=== PATIENT | male | born 1965 | race Caucasian/White ===

== ENCOUNTER 2019-01-08 11:22 | Outpatient (CLI) | payer BC ==
--- NOTE | 2019-01-08 11:50 | RAD ---
FXR Shoulder Rt 2 View: 01/08/2019 12:00 AM CLINICAL INDICATION: Pain COMPARISON: None. FINDINGS: Fracture:No fracture. Arthropathy:None of significance. Incidental findings:None of significance. IMPRESSION: 1. No acute fracture.
== END 2019-01-08 11:23 | disposition home or self-care (01) ==
LOC: BICRAD 11:22
PROVIDERS: ATTEND Anesthesiology
DX: M25.511 Pain in right shoulder (principal)

== ENCOUNTER 2019-05-27 12:56 | Outpatient (CLI) | payer BC ==
[2019-05-27 14:12] LABS: #Eosinphils 0.1 thou/uL (0.0-0.7); #Lymphocytes 1.4 thou/uL (1.20-3.40); #Monocytes 0.4 thou/uL (0.11-0.59); #Neutrophils 3.2 thou/uL (1.40-6.50); %Basophils 0.7 % (0.0-1.0); %Eosinophils 1.7 % (0.0-10.0); %Lymphocytes 26.8 % (21.0-51.0); %Monocytes 7.7 % (0.0-10.0); %Neutrophils 63.1 % (42.0-75.0); Hemoglobin 15.2 g/dL (14.0-18.0); Mean Corpuscular HGB CONC 33.6 g/dL (32.0-36.0); Mean Corpuscular Hemoglobin 30.2 pg (27.0-31.0); Mean Platelet Volume 8.5 fL (7.4-10.4); Platelet Count 165 thou/uL (130-400); RBC Distribution Width 12.1 % (11.5-14.5); Red Blood Cell (RBC) Count 5.03 mill/uL (4.70-6.10); White Blood Cell (WBC) Count 5.1 thou/uL (4.8-10.8)
[2019-05-27 14:34] LABS: Anion Gap 13 mmol/L (10-20); BUN (Urea Nitrogen) 8 mg/dL (8.4-25.7); Calc. Creatinine Clearance 0 mL/min (70-130); Calcium 9.4 mg/dL (7.8-10.44); Carbon Dioxide 24 mmol/L (22-29); Chloride 108 mmol/L (98-107); Estimated GFR-MDRD 64; Glucose 162 mg/dL (70-105); Sodium 141 mmol/L (136-145)
== END 2019-05-27 12:57 | disposition home or self-care (01) ==
LOC: LABBT 12:56
PROVIDERS: ATTEND Orthopaedic Surgery
DX: Z01.818 Encounter for other preprocedural examination (principal); S46.211A Strain of muscle, fascia and tendon of other parts of biceps, right arm, initial encounter
CPT/HCPCS: 80048; 85025; 93005; 93010

== ENCOUNTER 2019-05-29 06:48 | Day surgery (SDC) | payer BC ==
[2019-05-27 13:20] VITALS: BMI 30.4
[2019-05-29] MEDS ORDERED: ceFAZolin Sodium (SDC) 2 GM/100 ML BAG ONE (07:38)
[2019-05-29] MEDS ORDERED: Midazolam HCl 2 mg/2 ml Vial ONE (08:08)
[2019-05-29] MEDS ORDERED: Lidocaine 1% (PF) 30 ML VIAL ONE (08:08)
[2019-05-29] MEDS ORDERED: Fentanyl 100 MCG/2 ML VIAL ONE (08:08)
[2019-05-29] MEDS ORDERED: Zolpidem Tartrate 5 MG TAB PO PRN (08:38)
[2019-05-29] MEDS ORDERED: traMADol HCl 50 MG TAB PO PRN ×2 (08:38)
[2019-05-29] MEDS ORDERED: Ropivacaine 0.2% 550 ML 550 ML NERVE BLCK SCH (08:38)
[2019-05-29] MEDS ORDERED: HYDROcodone/Acetaminophen 10/325 mg Tablet PO PRN ×2 (08:38)
[2019-05-29] MEDS ORDERED: Promethazine HCl 25 MG/ML VIAL IM PRN (08:38)
[2019-05-29] MEDS ORDERED: Ondansetron PF 4 MG/2 ML Vial IVP PRN (08:38)
[2019-05-29] MEDS ORDERED: Fentanyl 100 MCG/2 ML VIAL IV PRN (08:39)
[2019-05-29] MEDS ORDERED: Bupivacaine/Epinephrine 0.25% 30 ML VIAL ONE (09:11)
--- NOTE | 2019-05-29 10:36 | OP ---
DATE OF PROCEDURE: 05/29/2019 PREOPERATIVE DIAGNOSIS: Right shoulder impingement with intra-articular biceps tendon tear. POSTOPERATIVE DIAGNOSIS: Right shoulder impingement with intra-articular biceps tendon tear. PROCEDURES PERFORMED: 1. Right shoulder arthroscopy with arthroscopic subacromial decompression. 2. Open biceps tenodesis. BI LEAD: Chas Siegel PA-C ESTIMATED BLOOD LOSS: Minimal. COMPLICATIONS: None. ANESTHESIA: The patient did have a general anesthetic as well as a preoperative block. IMPLANTS: To the right arm is an Arthrex 8 x 23 BioComposite Bio-Tenodesis screw. DISPOSITION: He went to recovery room in stable condition. INDICATIONS: This is a 53-year-old active male, who has been having right shoulder and arm pain for months and an MRI confirmed an intra-articular biceps tendon tear. At this time, he wished to have surgery. DESCRIPTION OF PROCEDURE: After all appropriate consent forms were explained and signed, he was taken back to the operative room and at this time was given a general anesthetic. Once the level of anesthesia was appropriate, the patient was rolled into the left lateral decubitus position with all bony prominences well padded. Axillary roll was placed underneath the left axilla and a hendrix bag was inflated to hold into its position. The arm was then taken through full range of motion and then suspended with 15 pounds in standard arthroscopic fashion. Bony anatomical landmarks were then drawn out after the shoulder and upper extremity were prepped and draped in standard surgical fashion. The subacromial space was infiltrated with Marcaine with epinephrine. Posterior portal was established. Scope was placed into the shoulder joint. Anterior working portal was made using a needle localization technique. Diagnostic arthroscopy commenced. The glenohumeral articular cartilage on the humeral head and glenoid were in good condition. No loose bodies were noted in the axillary pouch. The inferior, posterior, and anterior labrum were in good condition. Superior labrum was degenerative and torn. There was an intra-articular tear of the biceps tendon in 2 separate areas with large pieces of tissue hanging down. The subscapularis tendon was overall intact. The very leading edge of this was found to be frayed and the rotator cuff insertion was found to be in good condition. At this time, a green cannula was placed anteriorly and through an 18-gauge needle, a stitch was placed through the biceps tendon. The scissors were then used to cut the biceps off the superior labrum. We then removed our scope and replaced it into the subacromial space. Lateral working portal was made. Bursa was removed from off the underlying rotator cuff. This was found to be intact. The soft tissue was removed using the shaver and the surface energy and a small bony decompression was performed of the anterior-inferior acromion. Once this was done, scope was removed. Shoulder was drained. We then made an incision from our poke hole, where the needle was used to place the stitch through the biceps down distally through skin with a 15 blade. The Bovie was used to coagulate any brisk venous bleeding. Deltoid fascia was incised sharply. Finger dissection was used to dissect the deltoid in-line with its fibers. We then got down to the transverse humeral ligament, opened this up in its entirety to free up the biceps tendon. The large fat intra-articular portion of the biceps tendon was noted and at this time, we sutured the tendon distal to this, removing this portion of the tendon. We then measured this to be an 8. We then placed our pin. We drilled to a depth of 25 with an 8-mm reamer and placed an 8 x 23 BioComposite Bio-Tenodesis screw in standard fashion. Sutures were tied over top so that the screw could not back out. At this time, we thoroughly irrigated and dried. We allowed our deltoid to close upon itself. We ran a Vicryl to close the deltoid fascia. 2-0 Vicryl sutures were used to close this incision as well as our portals. Bulky sterile dressing was applied. The patient was awakened, taken to the recovery room in stable condition. All counts were correct at the end of the case and he did receive preoperative IV antibiotics. Job ID: [id number]
[2019-05-29] MEDS ORDERED: Ketorolac Tromethamine 30 MG/ML VIAL IVP SCH (12:00)
== END 2019-05-29 13:40 | disposition home or self-care (01) ==
LOC: SDC 06:48
PROVIDERS: ATTEND Orthopaedic Surgery
PROC: 0LS10ZZ Reposition Right Shoulder Tendon, Open Approach (ICD-10-PCS; principal; 2019-05-29)
PROC: 0RHJ04Z Insertion of Internal Fixation Device into Right Shoulder Joint, Open Approach (ICD-10-PCS; principal; 2019-05-29)
PROC: 0RNJ4ZZ Release Right Shoulder Joint, Percutaneous Endoscopic Approach (ICD-10-PCS; principal; 2019-05-29)
PROC: 3E0T3BZ Introduction of Anesthetic Agent into Peripheral Nerves and Plexi, Percutaneous Approach (ICD-10-PCS; principal; 2019-05-29)
DX: S46.111A Strain of muscle, fascia and tendon of long head of biceps, right arm, initial encounter (principal); M25.811 Other specified joint disorders, right shoulder; M24.111 Other articular cartilage disorders, right shoulder; G89.18 Other acute postprocedural pain; I10 Essential (primary) hypertension; E78.5 Hyperlipidemia, unspecified; K21.9 Gastro-esophageal reflux disease without esophagitis; M47.816 Spondylosis without myelopathy or radiculopathy, lumbar region; Z88.0 Allergy status to penicillin; Z79.82 Long term (current) use of aspirin; Z79.899 Other long term (current) drug therapy
CPT/HCPCS: A4306; C1713; J0690; J2001; J2250; J2795; J3010

== ENCOUNTER 2019-12-06 06:04 | Day surgery (SDC) | payer BC ==
[2019-12-05 15:40] VITALS: BMI 31.6
[2019-12-06] MEDS ORDERED: Thrombin 5000 UNITS/5 ML VIAL ONE (06:23)
[2019-12-06] MEDS ORDERED: Midazolam HCl 2 mg/2 ml Vial ONE (08:22)
[2019-12-06] MEDS ORDERED: Fentanyl 100 MCG/2 ML VIAL ONE ×2 (08:22→10:08)
[2019-12-06] MEDS ORDERED: HYDROmorphone 0.5 MG/0.5 ML SYRINGE ONE (08:22)
[2019-12-06] MEDS ORDERED: Lidocaine 2% Jelly 5 ML TUBE ONE (08:23)
--- NOTE | 2019-12-06 09:57 | OP ---
DATE OF PROCEDURE: 12/06/2019 PORTABLE GRINDING MACHINE OPERATOR: Ryan Thakkar PA-C INDICATION: Pain. DIAGNOSIS: Cervical radiculopathy. PROCEDURE PERFORMED: Anterior cervical diskectomy and fusion, C5-C6. ANESTHESIA: General. DESCRIPTION OF PROCEDURE: The patient was brought into the operating room and placed under general anesthesia. He was placed on the table in a supine position. A transverse incision was planned over the lateral aspect of the neck on the right. After prepping and draping and after an appropriate preoperative pause, the incision was created. The underlying platysma muscle was identified and incised. A blunt tissue plane anterior to the sternocleidomastoid muscle was used to gain access to the prevertebral space. Self-retaining retractors were placed within the wound for optimal exposure. After confirming the appropriate levels with C-arm fluoroscopy, an annulotomy was performed in the C5-C6 disk space. All disk material as well as anterior and posterior osteophytes were removed. After completely decompressing that segment, the wound was irrigated. Hemostasis was maintained. An 8-mm lordotic PEEK cage packed with allograft and autograft material was then placed within the interbody space. An anterior cervical plate was then fashioned to the front of the spine and secured with 4 fixed screws. Midline and lateral structures were inspected and found to be free from significant trauma. The wound was then irrigated. Hemostasis was maintained throughout. The wound was then closed in anatomic layers and a pressure dressing was applied. There were no known procedural complications. Job ID: [id number]
[2019-12-06] MEDS ORDERED: Tamsulosin HCl 0.4 MG CAP ONE (10:45)
[2019-12-06] MEDS ORDERED: PROPOFOL 200 MG/20 ML VIAL ONE (11:55)
[2019-12-06] MEDS ORDERED: PHENYLEPHRINE-NS 100 MCG/ML 10 ML SYRINGE ONE (11:55)
[2019-12-06] MEDS ORDERED: Dexamethasone 20 MG/5 ML VIAL ONE (11:55)
[2019-12-06] MEDS ORDERED: Lidocaine 1% PF 5 ML VIAL ONE (11:55)
[2019-12-06] MEDS ORDERED: Glycopyrrolate 0.2 MG/ML 5 ML SYRINGE ONE (11:55)
[2019-12-06] MEDS ORDERED: Ondansetron PF 4 MG/2 ML Vial ONE (11:55)
[2019-12-06] MEDS ORDERED: EPHEDRINE 25 MG/5 ML SYRINGE ONE (11:55)
[2019-12-06] MEDS ORDERED: Rocuronium Bromide 10 MG/ML (10ML VIAL) ONE (11:55)
--- NOTE | 2019-12-07 11:48 | HP ---
HISTORY OF PRESENT ILLNESS: Mr. John is a pleasant 54-year-old man, presenting for discussion of chronic axial neck pain with radicular component into the right interscapular region. He had known intrinsic shoulder pathology as well, which Dr. Borrero repaired in the fall of 2019 and notes that this has improved a component of his pains, but the interscapular pains tend to be severe. He has been seeing Dr. Leonard, who has been providing epidural steroid injections and while they have helped great deal, his pain continued to return. Reports burning in the right scapula and states when he is lifting or turning his head to the right, the pain intensified. He denies any left-sided symptoms. MRI recently in [facility] reveals significant foraminal stenosis at C5-C6 that would likely fit with symptoms he has been experiencing. PHYSICAL EXAMINATION: He is alert and oriented x3. Gait is normal. No ataxia. Upper extremity motor exam is normal. He has an avidly positive right Spurling's maneuver. PAST MEDICAL HISTORY: Significant for anxiety, hyperlipidemia, hypertension, gastroesophageal reflux disease, chronic neck pain. CURRENT MEDICATIONS: Baby aspirin, Celebrex, baclofen, gabapentin, latanoprost, pantoprazole, lisinopril, rosuvastatin, paroxetine, buspirone. PAST SURGICAL HISTORY: Back surgeries x2 and shoulder surgery. ASSESSMENT: Cervical radiculopathy. PLAN: Dr. Méndez met with the patient, reviewed imaging, advocated for a C5-C6 ACDF. He explained to the patient the risks, benefits, and alternatives to the procedure. The patient expressed understanding and elected to move forward with surgery as discussed. I do believe the patient is mentally competent and capable of making medical decisions for himself. We will move forward with surgery as planned. Job ID: [id number]
== END 2019-12-06 14:03 | disposition home or self-care (01) ==
LOC: SDC 06:04
PROVIDERS: ATTEND Neurological Surgery
PROC: 0RT30ZZ Resection of Cervical Vertebral Disc, Open Approach (ICD-10-PCS; principal; 2019-12-06)
PROC: 0RG10A0 Fusion of Cervical Vertebral Joint with Interbody Fusion Device, Anterior Approach, Anterior Column, Open Approach (ICD-10-PCS; principal; 2019-12-06)
DX: M54.12 Radiculopathy, cervical region (principal); I10 Essential (primary) hypertension; E78.5 Hyperlipidemia, unspecified; F41.9 Anxiety disorder, unspecified; K21.9 Gastro-esophageal reflux disease without esophagitis; Z79.82 Long term (current) use of aspirin; Z79.899 Other long term (current) drug therapy; Z88.0 Allergy status to penicillin
CPT/HCPCS: 76000; C1713; C1776; J0690; J1100; J1170; J2001; J2250; J2405; J2704; J3010

== ENCOUNTER 2020-07-28 07:43 | Outpatient (CLI) | payer BC, OTHER ==
[2020-07-28 17:26] LABS: SARS-CoV-2 MS2 Positive; SARS-CoV-2 N Gene Negative; SARS-CoV-2 S Gene Negative; SARS-CoV-2 by NAA Not Detected (NotDetected); SARS-CoV-2 orf1ab Negative
== END 2020-07-28 07:44 | disposition home or self-care (01) ==
LOC: LABBT 07:43
PROVIDERS: ATTEND Neurological Surgery
DX: M54.16 Radiculopathy, lumbar region (principal); Z20.828 Contact with and (suspected) exposure to other viral communicable diseases
CPT/HCPCS: 87635; U0003

== ENCOUNTER 2020-07-31 05:40 | Day surgery (SDC) | payer BC ==
[2020-07-30 11:13] VITALS: BMI 29.8
--- NOTE | 2020-07-30 21:45 | HP ---
HISTORY OF PRESENT ILLNESS: Mr. John is known to us for prior ACDF in earlier this year, who presents now with a protracted course of right lower extremity dysfunction that he had for several years. He had 2 prior lumbar procedures in this area and continues to report severe right-sided leg pain that has components of L5 and perhaps components of S1. MRI scan from [facility] performed in May this year reveals presence of prior surgical procedure with associated lateral recess stenosis and mild degree of foraminal stenosis at L5. He denies any pain in the left. He does report numbness in addition to pain on the right lower extremity. Dr. Leonard has been treating this with injections, but the relief he gets is quite short-lived. He hopes to treat this surgically if possible. PAST MEDICAL HISTORY: Significant for anxiety, hyperlipidemia, hypertension, gastroesophageal reflux disease, chronic neck pain. CURRENT MEDICATIONS: 1. Baby aspirin. 2. Celebrex. 3. Baclofen. 4. Gabapentin. 5. Latanoprost. 6. Pantoprazole. 7. Lisinopril. 8. Rosuvastatin. 9. Paroxetine. 10. Buspirone. PAST SURGICAL HISTORY: Lumbar laminectomy x2, unspecified shoulder surgery, and ACDF. ASSESSMENT: Lumbar radiculopathy. PLAN: Dr. Méndez met with the patient, reviewed imaging, and advocated for a right L4-S1 decompression. He explained to the patient the risks, benefits, and alternatives to the procedure. The patient expressed understanding and elected to move forward with surgery as discussed. I do believe the patient is mentally competent and capable of making medical decisions for himself. We will move forward with surgery as planned. Job ID: [id number]
[2020-07-31] MEDS ORDERED: Lidocaine 2% Jelly 5 ML TUBE ONE (05:57)
[2020-07-31] MEDS ORDERED: HYDROmorphone 0.5 MG/0.5 ML SYRINGE ONE (05:57)
[2020-07-31] MEDS ORDERED: Fentanyl 100 MCG/2 ML VIAL ONE ×2 (05:57→09:29)
[2020-07-31] MEDS ORDERED: Bupivacaine HCl 0.5%/Epinephrine 1:200,000/PF 30 ml Vial ONE (06:22)
[2020-07-31] MEDS ORDERED: Thrombin 5000 UNITS/5 ML VIAL ONE (06:23)
[2020-07-31] MEDS ORDERED: Scopolamine 1.5 mg/72 hour Patch ONE (06:38)
[2020-07-31] MEDS ORDERED: Midazolam HCl 2 mg/2 ml Vial ONE (06:38)
[2020-07-31] MEDS ORDERED: Tamsulosin HCl 0.4 MG CAP ONE (08:35)
[2020-07-31] MEDS ORDERED: HYDROmorphone 2 MG/ML VIAL ONE (08:53)
--- NOTE | 2020-07-31 09:15 | OP ---
DATE OF PROCEDURE: 07/31/2020 LOADER HELPER: Ryan Thakkar PA-C INDICATION: Pain and prevent neurologic decline. DIAGNOSIS: Radiculopathy. PROCEDURE PERFORMED: Reoperation of right L4, right L5-S1 decompression. ANESTHESIA: General. DESCRIPTION OF PROCEDURE: The patient was brought into the operating room and placed under general anesthesia. He was flipped from the supine to prone position on the operating room table. A linear incision was planned over the L4 through S1 segments. After prepping and draping and after an appropriate preoperative pause, the incision was created. The soft tissues were swept away from midline. Self-retaining retractors were placed in the wound for optimal exposure. After confirming the appropriate levels with C-arm fluoroscopy, high-speed cutting drill bit as well as 2, 3, and 4 mm Kerrisons were used to perform laminectomies along the right side at L4-L5 and L5-S1 so that the lateral recesses were decompressed along the entire segment. After completing the decompression, the wound was irrigated. Hemostasis was maintained throughout. The wound was then closed in anatomic layers, and a pressure dressing was applied. There were no known procedural complications. Job ID: [id number]
[2020-07-31] MEDS ORDERED: Dexamethasone 20 MG/5 ML VIAL ONE (10:03)
[2020-07-31] MEDS ORDERED: Lidocaine 1% PF 5 ML VIAL ONE (10:03)
[2020-07-31] MEDS ORDERED: Rocuronium Bromide 10 MG/ML (10ML VIAL) ONE (10:03)
[2020-07-31] MEDS ORDERED: Glycopyrrolate 0.2 MG/ML 5 ML SYRINGE ONE (10:03)
[2020-07-31] MEDS ORDERED: Ondansetron PF 4 MG/2 ML Vial ONE (10:03)
[2020-07-31] MEDS ORDERED: PHENYLEPHRINE-NS 100 MCG/ML 10 ML SYRINGE ONE (10:03)
[2020-07-31] MEDS ORDERED: EPHEDRINE 25 MG/5 ML SYRINGE ONE ×2 (10:03)
[2020-07-31] MEDS ORDERED: PROPOFOL 200 MG/20 ML VIAL ONE (10:03)
--- NOTE | 2020-08-02 12:02 | EKG ---
Test Reason : PREOP Blood Pressure : / mmHG Vent. Rate : 063 BPM Atrial Rate : 063 BPM P-R Int : 162 ms QRS Dur : 088 ms QT Int : 420 ms P-R-T Axes : 023 057 057 degrees QTc Int : 429 ms Sinus rhythm with Premature atrial complexes with Abberant conduction Otherwise normal ECG No previous ECGs available Confirmed by BARBARA BURRELL (2) on 08/02/2020 12:01:53 PM Referred By: ADELE Confirmed By:BARBARA BURRELL
== END 2020-07-31 13:25 | disposition home or self-care (01) ==
LOC: SDC 05:40
PROVIDERS: ATTEND Neurological Surgery
PROC: 01NB0ZZ Release Lumbar Nerve, Open Approach (ICD-10-PCS; principal; 2020-07-31)
DX: M54.16 Radiculopathy, lumbar region (principal); F41.9 Anxiety disorder, unspecified; E78.5 Hyperlipidemia, unspecified; I10 Essential (primary) hypertension; K21.9 Gastro-esophageal reflux disease without esophagitis; G89.29 Other chronic pain; M54.2 Cervicalgia; Z79.82 Long term (current) use of aspirin; Z79.899 Other long term (current) drug therapy; Z88.0 Allergy status to penicillin; Z98.1 Arthrodesis status
CPT/HCPCS: 76000; 93005; 93010; J0690; J1100; J1170; J2250; J2405; J2704; J3010